=== PATIENT | female | born 1995 | race Caucasian/White ===

== ENCOUNTER → 2017-02-11 17:25 | Observation (INO) ==
[2017-02-11 14:13] LABS: Bilirubin,Urine Negative (Negative); Blood,Urine Negative (Negative); Color,Urine Yellow (Yellow); Glucose,Urine (UA) Normal (Normal); Ketones,Urine Negative (Negative); Leukocyte Esterase,Urine Negative (Negative); Nitrite,Urine Negative (Negative); PH,Urine 6.5 pH Units (5.0-8.0); Protein,Urine Negative (Neg-Trace); Specific Gravity,Urine 1.024 (1.010-1.025); Urobilinogen,Urine Normal (Normal)
[2017-02-11 14:15] LABS: Clarity,Urine Clear (Clear)
[2017-02-11 14:17] LABS: Amphetamine Screen,Urine Negative ng/mL (Cutoff=1000); Barbiturate Screen,Urine Negative ng/mL (Cutoff=200); Benzodiazepines Screen,Urine Negative ng/mL (Cutoff=200); Cannabinoid Screen,Urine Negative ng/mL (Cutoff = 50); Cocaine Screen,Urine Negative ng/mL (Cutoff= 300); Opiate Screen,Urine Negative ng/mL (Cutoff=300); Phencyclidine Screen,Urine Negative ng/mL (Cutoff=25)
[2017-02-11 14:51] LABS: Basophils % 0.4 %; Eosinophils # 0.4 K/mcL (0.0-0.6); Eosinophils % 4.1 %; Hematocrit 32.6 % (35.3-44.9); Immature Granulocytes % 0.7 % (0-4); Immature Platelets 3.9 % (1.1-6.1); Lymphocytes # 1.9 K/mcL (0.6-4.6); Mean Corpuscular HGB Conc 33.7 g/dL (31.6-35.5); Mean Corpuscular Hemoglobin 29.4 pg (28.0-33.3); Mean Corpuscular Volume 87.2 fL (83.0-100.0); Mean Platelet Volume 10.1 fL (9.4-12.4); Monocytes # 0.7 K/mcL (0.0-1.3); Monocytes % 6.3 %; Neutrophils # 7.5 K/mcL (1.6-8.9); Platelet Count 269 K/mcL (140-400); Red Blood Count 3.74 M/mcL (3.82-4.97); Red Cell Distribution Width 12.6 % (11.5-14.5); Segmented Neutrophils % 70.5 %
--- NOTE | 2017-02-11 17:20 | OB/GYN Progress Note ---
Date of Encounter: 02/11/17 Time of Encounter: 17:18 - Assessment and Plan (1) uterine contractions in second trimester, antepartum Current Visit: Yes Status: Acute Pt reports contractions have resolved since arriving to triage. CL reassuring on US. SVE with no change at ft/50/-3. Celestone given. Discharge home with pelvic rest and labor precautions. Pt to return tomorrow for repeat celestone injection. (2) 27 weeks gestation of Current Visit: Yes Status: Acute (3) Low lying placenta nos or without hemorrhage, second trimester Current Visit: Yes Status: Acute Need for pelvic rest discussed with pt. (4) cardiac echogenic focus, antepartum Current Visit: Yes Status: Acute Qualifiers: Fetus number: single or unspecified fetus Qualified Code(s): O35.8XX0 - Maternal care for other (suspected) abnormality and damage, not applicable or unspecified Subjective - Subjective Interval history: 21 year-old presenting at 27w1d with c/o pelvic pressure and cramping. She denies LOF or VB. She does admit to having sexual intercourse at about 0430 this am. She had some contractions with her last that was stopped with medication. She delivered full term. This has been complicated by ecogenic cardiac focus in the fetus. Antepartum ROS: movement normal, contractions, no loss of fluid, no vaginal bleeding Objective - Vital Signs Vital Signs: Intake and Output 02/11/17 02/11/17 02/11/17 07:59 15:59 23:59 Other: Weight 68.2 kg Patient Weight 02/11/17 23:59 Weight 68.2 kg - Exam FHR: category 1 FHR comments: FHT reassuring for gestational age. Abdomen: Present: soft, gravid. Absent: tenderness Uterus: Absent: tenderness Cervical dilation: FT Cervix effacement: 50 station: -3 bolottable - Labs Labs: Abnormal lab results RBC 3.74 M/mcL (3.82-4.97) L 02/11/17 14:40 Hgb 11.0 g/dL (11.5-15.4) L 02/11/17 14:40 Hct 32.6 % (35.3-44.9) L 02/11/17 14:40
[~2017-02-11 17:25] MED LIST: Betamethasone Acet/SodPhos 6 MG/ML MDV IM SCH; Ringers Solution, Lactated 1,000 ML IVC ONE; Ringers Solution, Lactated 1,000 ML IVC SCH; Ringers Solution, Lactated 1,000 ML ONE
== END | disposition home or self-care (01) ==
LOC: 1NENULAB
PROVIDERS: ADMIT Obstetrics & Gynecology; ATTEND Obstetrics & Gynecology

== ENCOUNTER 2017-04-14 17:26 | Observation (INO) ==
[2017-04-14 17:57] LABS: Bilirubin,Urine Negative (Negative); Blood,Urine Negative (Negative); Clarity,Urine Cloudy (Clear); Color,Urine Yellow (Yellow); Glucose,Urine (UA) Normal (Normal); Ketones,Urine Negative (Negative); Leukocyte Esterase,Urine Negative (Negative); Nitrite,Urine Negative (Negative); PH,Urine 6.5 pH Units (5.0-8.0); Protein,Urine Negative (Neg-Trace); Specific Gravity,Urine 1.022 (1.010-1.025); Urobilinogen,Urine Normal (Normal)
[2017-04-14 17:59] LABS: Bacteria,Urine Few per hpf (None-Few); Hyaline Casts,Urine None Seen per lpf (None-Few); Squamous Epithelial Cell,Urine Many per lpf (None-Few)
[2017-04-14 18:04] LABS: Amphetamine Screen,Urine Negative ng/mL (Cutoff=1000); Barbiturate Screen,Urine Negative ng/mL (Cutoff=200); Benzodiazepines Screen,Urine Negative ng/mL (Cutoff=200); Cannabinoid Screen,Urine Negative ng/mL (Cutoff = 50); Cocaine Screen,Urine Negative ng/mL (Cutoff= 300); Opiate Screen,Urine Negative ng/mL (Cutoff=300); Phencyclidine Screen,Urine Negative ng/mL (Cutoff=25)
--- NOTE | 2017-04-14 18:05 | OB/GYN Progress Note ---
Date of Encounter: 04/14/17 Time of Encounter: 18:03 - Assessment and Plan (1) 36 weeks gestation of Current Visit: Yes Status: Acute (2) Vaginal discharge during in third trimester Current Visit: Yes Status: Acute 21 yo at 36 weeks gestation IUP Vaginal discharge - no bacteria or yeast noted from vaginosis panel Membranes intact - all ROM studies negative Offered new rx - pt declines and states she will continue home medications Discharge home Follow up in office as scheduled Subjective - Subjective Principal diagnosis: Pt states "I think my water broke." Antepartum ROS: loss of fluid (Reports she has been leaking fluid since yesterday. Denies VB, ctx.) Objective - Exam FHR: category 1 FHR comments: Baseline 135, moderate variability with accelerations. Abdomen: Present: normal appearance, soft, gravid Uterus: Present: normal Cervical dilation: 3 Cervix effacement: 70 station: -4 Comments: Fern negative Pooling negative Nitrazine negative Multiple clue cells seen on microscopy
[2017-04-14 18:23] LABS: RBC,Urine 0-3 per hpf (0-3)
[2017-04-14 18:55] LABS: Candida DNA Not Detected (Not Detect); Gardnerella DNA Not Detected (Not Detect); Trichomonas DNA Not Detected (Not Detect)
== END 2017-04-14 19:25 | disposition home or self-care (01) ==
LOC: 1NENULAB
PROVIDERS: ADMIT Obstetrics & Gynecology; ATTEND Obstetrics & Gynecology

== ENCOUNTER 2017-04-29 21:35 | Inpatient (IN) ==
--- NOTE | 2017-04-29 18:56 | OB/GYN Progress Note ---
Date of Encounter: 04/29/17 Time of Encounter: 19:15 Subjective - Subjective Principal diagnosis: contractions Antepartum ROS: movement normal, contractions, no loss of fluid, no vaginal bleeding
--- NOTE | 2017-04-29 19:03 | OB/GYN History & Physical ---
Date of Encounter: 04/29/17 Time of Encounter: 19:10 Assessment and Plan (1) Active labor at term Current visit: Yes Status: Acute Plan: - admit to L&D - NST reactive - obtain CBC and drug screen - expectant management. Patient making cervical change on own. - epidural when ready - anticipate (2) 38 weeks gestation of Current visit: No Status: Acute History of Present Illness Chief complaint: contractions HPI: Ms. Jack is a 21 year old female at 38+1 weeks presented to labor and delivery contractions. Patient's is uncomplicated. Reports active movement. Patient denies vaginal bleeding, contractions, leakage of fluids. Denies N/V, changes in vision, RAPHAEL. Patient follows up with Dr. Bermudez. PNL: Blood type A+. GBS neg, RI, HBsAG neg, HIV neg. RPR neg. Past Med Surg Social Fam HX - Past Medical History Source: patient, old records reviewed Medical history: no medical history, thyroid disease (thyromegaly) Psychiatric history: no psych history - Past Surgical History Surgical History: herniorrhaphy - Social History Smoking Status: Never smoker Smokeless Tobacco Status: No Alcohol use: none Drug use: none - Family History Mother Adopted: No Living Status: Still Living Hx Family Cardiac Disorders: Yes (HTN) Hx Family Respiratory Disorders: No Hx Family Cancer: No Hx Family GI Disorders: No Hx Family Endocrine Disorder: No Hx Family Neuromuscular Disorders: No Hx Family Neurologic Disorders: No Hx Family HEENT Disorders: No Hx Family Autoimmune Disorders: No Obstetrical History - Pregnancies : 2 Para: 1 Term: 1 : 0 Ab's: 0 Livin - History/Complications History/Complications: Total pregnancies 2. Total living children 1. # 1: 09/27/2015, male, 7lbs 1oz, normal spontaneous vaginal delivery ( ). Medications and Allergies Vit37/Iron/Folic Acid [Prenata Chewable Tablet] 1 each PO DAILY [History] 3 Allergy/AdvReac Type Severity Reaction Status Date / Time No Known Allergies Allergy Verified 04/29/17 20:19 Review of System OB All systems PM: reviewed and no additional remarkable complaints except as stated Exam - Constitutional Constitutional: well developed, well nourished - HEENT HEENT: EOMI - Neck Neck exam: full ROM - Lungs Respiratory exam: CTAB - Cardiovascular Cardiovascular exam: RRR - Abdomen Abdomen: Present: bowel sounds normal - Extremities Extremities exam: full ROM - Vulva Vulva: bilateral: normal - Vagina Vagina: Present: normal moisture - Cervix Dilation: 5 Effacement: 80 Station: -3 - Uterus Uterus exam: Present: normal size - Comments Comments: I examined this patient and my medical decision-making was reviewed with the Resident Physician. I agree with the documented findings, disposition and treatment plan as described except to the extent set forth below. VENANCIO Gonzalez Results Result Diagrams: 04/29/17 21:33 All other labs normal. - VTE Reasons for not Prescribing Prophylaxis: Treatment not Indicated - Low risk for VTE
[2017-04-29 19:37] LABS: Amphetamine Screen,Urine Negative ng/mL (Cutoff=1000); Barbiturate Screen,Urine Negative ng/mL (Cutoff=200); Benzodiazepines Screen,Urine Negative ng/mL (Cutoff=200); Cannabinoid Screen,Urine Negative ng/mL (Cutoff = 50); Cocaine Screen,Urine Negative ng/mL (Cutoff= 300); Opiate Screen,Urine Negative ng/mL (Cutoff=300); Phencyclidine Screen,Urine Negative ng/mL (Cutoff=25)
[~2017-04-29 21:35] MED LIST changes: +*HR* Nalbuphine 20 MG/ML AMPUL IVP PRN; -Betamethasone Acet/SodPhos 6 MG/ML MDV IM SCH; +Famotidine 20 MG/2 ML VIAL IVP PRN; +Metoclopramide 10 MG/2 ML VIAL IVP PRN; +Naloxone 0.4 MG/ML INJ IVP PRN; -Ringers Solution, Lactated 1,000 ML IVC ONE; -Ringers Solution, Lactated 1,000 ML IVC SCH
[2017-04-29] MEDS ORDERED: Ringers Solution, Lactated 1,000 ML IVC SCH (21:45)
[2017-04-29 21:51] LABS: Basophils % 0.3 %; Eosinophils # 0.3 K/mcL (0.0-0.6); Eosinophils % 2.5 %; Hematocrit 34.2 % (35.3-44.9); Hemoglobin 11.2 g/dL (11.5-15.4); Immature Granulocytes % 0.5 % (0-4); Lymphocytes # 2.2 K/mcL (0.6-4.6); Lymphocytes % 20.7 %; Mean Corpuscular HGB Conc 32.7 g/dL (31.6-35.5); Mean Corpuscular Volume 82.4 fL (83.0-100.0); Mean Platelet Volume 10.1 fL (9.4-12.4); Monocytes # 0.7 K/mcL (0.0-1.3); Monocytes % 6.4 %; Neutrophils # 7.5 K/mcL (1.6-8.9); Platelet Count 301 K/mcL (140-400); Red Blood Count 4.15 M/mcL (3.82-4.97); Red Cell Distribution Width 13.6 % (11.5-14.5); Segmented Neutrophils % 69.6 %
[2017-04-30] MEDS ORDERED: Bupivacaine-MPF 0.25% 10 ML VIAL ONE (00:49)
[2017-04-30] MEDS ORDERED: *HR* FentaNYL (PF) 100 MCG/2 ML VIAL ONE (00:49)
[2017-04-30] MEDS ORDERED: Epidural Premix (fent/bupiv) 110 ML EP ONE ×2 (00:50→08:46)
[2017-04-30] MEDS ORDERED: Bupivacaine-MPF 0.25% 10 ML VIAL EP ONE (01:29)
[2017-04-30] MEDS ORDERED: *HR* FentaNYL (PF) 100 MCG/2 ML VIAL EP ONE (01:29)
[2017-04-30] MEDS ORDERED: Epidural Premix (fent/bupiv) 110 ML EP SCH (01:30)
--- NOTE | 2017-04-30 01:33 | Anesthesia Evaluation PreOp ---
Date of Encounter: 04/30/17 Time of Encounter: 00:42 - Past History Planned Operation: labor epidural Cardiac History: Denies any Significant Hx Pulmonary History: Denies Any Significant HX GREENHOUSE TECHNICIAN History: Denies Any Significant HX Other Medical History: Denies Any Significant HX Anesthesia History: No Prior Anesthetic Complications, Past Anesthesia (hernia repair at age 6 years. No FHAP.) : Yes Alcohol Use: none Drug use: none Medications and Allergies Vit37/Iron/Folic Acid [Prenata Chewable Tablet] 1 each PO DAILY [History] 3 Allergy/AdvReac Type Severity Reaction Status Date / Time No Known Allergies Allergy Verified 04/29/17 20:19 - Meds/Allergy Pre-op Review Medications Reviewed: Yes Allergies Reviewed: Yes Beta Blockers on Current Med List: No Anesthesia Results - Labs 04/29/17 21:33 Anesthesia Exam 121/70, 93, 16. FHTs 130s. Height: 5'3" Weight: 74 kg NPO (# of Hours): 12 Pain Scale: 10 Pain Scale Used: Numeric (1 - 10) - HEENT Pupil (Motor): Pupils equal Mallampati: II Teeth: Normal Oral Opening: Greater than 3 - GREENHOUSE TECHNICIAN LOC: Oriented GREENHOUSE TECHNICIAN Motor: Normal RUE, Normal LUE, Normal RLE, Normal LLE, Normal Face GREENHOUSE TECHNICIAN Sensory: Normal: RUE, LUE, RLE, LLE, Face - Cardiac Rhythm: Regular - Pulmonary Breath Sounds: bilateral Clear Respiratory Effort: Symmetrical Anesthesia Assess/Plan ASA Score: 2 Modified Wingo Scale for Level of Consciousness: Cooperative, oriented, and tranquil Anesthetic Plan: Regional Monitoring Plan: Standard Monitors
--- NOTE | 2017-04-30 01:37 | Anesthesia Procedures ---
Date of Encounter: 04/30/17 Time of Encounter: 00:51 Procedures: Anesthesia - Epidural/Spinal Patient ID/Chart reviewed: Yes Patient examined: Yes OB Eval: Gestational age: 38 OB Eval: : 2 OB Eval: Hx Para: 1 OB Eval: Dilated at (cm): 6 OB Eval: Contractions: Non-stressed pattern Consent Obtained: Yes Supplemental Oxygen: None/Room Air Site Prep: Aseptic Technique, Sterile prep and drape, Povidone-Iodine 1% Patient position: upright Local Anesthetic: Lidocaine 1% Amount of Local Anesthetic used: 3 Touhy Needle Gauge: 18 Touhy Needle Depth (cm): 6 Catheter Depth at Skin (cm): 15 Test Dose (1.5% Lido + Epi): Volume given (mls): 3 Test Dose Result: Negative Loading Dose: 0.25% Marcaine (mls): 8 Loading Dose: Fentanyl (mcg): 100 Loading Dose Administered: Thru Catheter Infusion Med: 0.125% Bupivacaine w/ 2 mcg/ml Fentanyl Infusion Rate (mls/hr): [address]: Tegaderm, Tape Interspace Used: L3-L4 Loss of Resistance (YON): Yes Blood: No CSF: No Paresthesia: No Vitals + FHT's: 3 Vital Signs Time 0051 0113 0115 0120 0125 BP 121/70 132/62 115/68 112/58 115/67 Pulse 91 92 93 92 94 FHTs 130 130 130 130 130
[2017-04-30] MEDS ORDERED: Famotidine 20 MG/2 ML VIAL IVP ONE (07:24)
--- NOTE | 2017-04-30 08:22 | OB Labor Progress Note ---
Date of Encounter: 04/30/17 Time of Encounter: 08:20 Labor Progress Note - Subjective Subjective: Pt reports she is comfortable with epidural. - Cervix Cervix: 8/90/-2 and ballottable - Heart Tones Heart Tones: Baseline 135 Moderate variability Accelerations present 15x15 Decelerations absent - [place]: Contractions 5+ minutes apart - Interventions Interventions: Start pitocin per protocol - Plan Plan: 21 yo IUP at 38+2 weeks GA GBS - Active labor Inadequate contraction pattern Plan: Continue expectant management Continue frequent position changes between peanut ball and oscar sitting Start pitocin per protocol and increase to adequate labor pattern Anticipate vaginal delivery Dr. Bermudez aware of POC and agrees
[2017-04-30] MEDS ORDERED: Oxytocin 20 units/ LR 1000 mL 20 UNIT/1,000 ML BAG IVC SCH ×2 (08:30→20:29)
[2017-04-30] MEDS ORDERED: Ondansetron 4 MG/2 ML VIAL IVP PRN (09:43)
--- NOTE | 2017-04-30 13:06 | OB Labor Progress Note ---
Date of Encounter: 04/30/17 Time of Encounter: 12:30 Labor Progress Note - Subjective Subjective: Pt reports good pain relief from epidural. States she is also feeling increase in pressure with contractions. - Cervix Cervix: 8/90/-2 - Heart Tones Heart Tones: Baseline 120 Moderate variability Accelerations present 15x15 Variable and early decelerations present Fetus Category II tracing - [place]: Contractions intermittent and irregular - Interventions Interventions: AROM - clear fluid IUPC placed - Plan Plan: Assessment: 21yo IUP at 39+3 weeks Irregular contraction pattern Plan: Continue expectant management AROM IUPC for ctx monitoring Anticipate vaginal delivery Dr. Bermudez aware of POC and agrees
--- NOTE | 2017-04-30 15:20 | OB/GYN Procedure Note ---
Delivery - Delivery Date: 04/30/17 Provider: Allegra Zhu Intrapartum events: none Delivery induction: none Delivery augmentation: rupture of membranes, pitocin Delivery monitor: external FHT Anesthesia: epidural Estimated Blood Loss: 100 - Infant (s) A Infant Delivery Date: 04/30/17 Infant Delivery Time: 15:05 Presentation: vertex Position: KELLY Route of delivery: Gender: Female Viability: Viable Weight Gram: 3365 kg at 1 minute: 9 at 5 mins: 9 Shoulder Dystocia: not encountered Specimens collected: cord blood Placenta: spontaneous Cord: 3 umbilical vessels - Repair Episiotomy: none Laceration Description: None - Complications Delivery complications: none Delivery comments: Pam is a G2 now P2002 who was admitted in spontaneous labor. She progressed with AROM and pitocin augmentation to the second stage of labor. She delivered a viable female KELLY over intact perineum. Infant was placed on maternal abdomen and bulb suctioned. A nuchal cord was not identified. 9/9. Wt 3365g. The placenta delivered spontaneously wtih a 3-vessel cord. Inspection revealed an intact perineum with right periurethral laceration that was hemostatic. EBL 100. Cord blood and cord segment collected. There were no complications during the delivery. Mom and baby cuddling and bonding skin-to- skin following delivery. Dr. Bermudez attended delivery for supervison. - Disposition Mom disposition: stable in LDR [place] disposition: stable in LDR - Comments Comments: Patient progressed to complete and on the perineum. She delivered a live female 7 lbs. 4 oz. over an intact perineum. Placenta delivered spontaneously intact. Estimated blood loss was 100 mL.
[2017-04-30] MEDS ORDERED: Benzocaine/Menthol 56 GM AEROSOL SPRAY TP PRN (20:29)
[2017-04-30] MEDS ORDERED: Ibuprofen 600 MG TABLET PO PRN (20:29)
[2017-04-30] MEDS ORDERED: Acetaminophen 325 MG TABLET PO PRN (20:29)
[2017-04-30] MEDS ORDERED: Lanolin 7 G OINT...G. TP PRN (20:29)
[2017-05-01] MEDS ORDERED: Maalox Oral Soln 30 mL PO PRN (06:54)
[2017-05-01 08:17] VITALS: BP 107/61
--- NOTE | 2017-05-01 08:55 | Discharge Summary ---
Date of Encounter: 05/01/17 Time of Encounter: 08:49 - Discharge Diagnosis (1) Vaginal delivery Priority: Primary Status: Acute Comments: Pt meeting milestones. No complaints. Pt desires discharge home. (2) Mother currently breast-feeding Priority: Secondary Status: Acute - Discharge Medications Prescriptions: Ibuprofen [Motrin] 600 mg PO Q6HR PRN #30 tablet PRN Reason: Cramping Docusate [Colace] 100 mg PO BID #30 capsule Home Medications: Vit37/Iron/Folic Acid [Prenata Chewable Tablet] 1 each PO DAILY [History] Benzocaine/Menthol [place] [Dermoplast [place]] 1 appl TP QID PRN aerosol 05/01/17 [Rx] Docusate [Colace] 100 mg PO BID #30 capsule 05/01/17 [Rx] Ibuprofen [Motrin] 600 mg PO Q6HR PRN #30 tablet 05/01/17 [Rx] Lanolin [Lansinoh] 1 appl TP QID PRN oint...g. 05/01/17 [Rx] Allergies/Adverse Reactions: 3 Allergy/AdvReac Type Severity Reaction Status Date / Time No Known Allergies Allergy Verified 04/29/17 20:19 Data Procedures and tests throughout hospitalization: Laboratory Tests 04/29/17 04/29/17 18:30 21:33 WBC 10.7 RBC 4.15 Hgb 11.2 L Hct 34.2 L MCV 82.4 L MCH 27.0 L MCHC 32.7 RDW 13.6 Plt Count 301 MPV 10.1 Immature Gran % 0.5 Seg Neutrophils % 69.6 Lymphocytes % 20.7 Monocytes % 6.4 Eosinophils % 2.5 Basophils % 0.3 Neutrophils # 7.5 Lymphocytes # 2.2 Monocytes # 0.7 Eosinophils # 0.3 Basophils # 0.0 Urine Opiates Screen Negative Ur Barbiturates Screen Negative Ur Phencyclidine Scrn Negative Ur Amphetamines Screen Negative U Benzodiazepines Scrn Negative Urine Cocaine Screen Negative U Marijuana (THC) Screen Negative Date of admission: 04/29/17 21:35 Consults: 04/30/17 20:29 Consult to Dairy Worker [CONS] Routine Comment: Vaginal delivery, consult needed Discharging clinician: Jessica Leigh Anticipated date of discharge: 05/01/17 - Patient Status Disposition: Home, Self-Care Condition: Good Functional capacity at discharge: independent ambulation Overall status at discharge: patient is progressing back to baseline - Discharge Instructions Follow Up With: Heena Rincon CNM [Advanced Practice Nurse] - - Diet and Activity Activity: increase activity as tolerated Diet: regular diet Hospital Course Reason for admission: active labor Delivery: Episiotomy: none Laceration: none Other procedures: none complications: none Discharge diagnosis: IUP at term delivered [place] baby: female Hospital course: - Delivery Date: 04/30/17 Provider: Allegra Zhu Intrapartum events: none Delivery induction: none Delivery augmentation: rupture of membranes, pitocin Delivery monitor: external FHT Anesthesia: epidural Estimated Blood Loss: 100 - (s) Infant A Delivery Date: 04/30/17 Infant Delivery Time: 15:05 Presentation: vertex Position: KELLY Route of delivery: Gender: Female Viability: Viable Weight Gram: 3365 kg at 1 minute: 9 at 5 mins: 9 Shoulder Dystocia: not encountered Specimens collected: cord blood Placenta: spontaneous Cord: 3 umbilical vessels - Repair Episiotomy: none Laceration Description: None - Complications Delivery complications: none - Disposition Mom disposition: home PPD#1 [place] disposition: home with mother, Time Attestation: Total time spent providing and/or coordinating discharge services: Time Spent: Less than 30 minutes Exam - Constitutional Vitals: Temp Pulse Resp BP Pulse Ox 97.7 F 68 16 107/61 97 05/01/17 07:30 05/01/17 07:30 05/01/17 07:30 05/01/17 07:30 05/01/17 03:25 General appearance IM: A&O X 3 - Respiratory Respiratory exam: Present: CTAB - Cardiovascular Cardiovascular exam IM: Present: RRR - GI/Abdominal GI/Abdominal exam IM: soft - Rectal Rectal exam: deferred - Uterine Tone: Firm Uterus Position: 3 Fingers Below Umbilicus - Extremities Exam Extremities exam IM: Present: normal inspection, pedal edema (mild edema bilaterally) - Neurological Exam Neurological exam: normal gait, oriented X3 - Psychiatric Additional comments: reports good mood
[2017-05-01] MEDS ORDERED: Prenatal Vit/FA 1 EACH TABLET PO SCH (09:00)
[2017-05-01] MEDS ORDERED: Mag Hydrox/Al Hydrox/Simeth 30 ML UDC PO PRN (11:15)
== END 2017-05-01 16:29 | disposition home or self-care (01) | DRG 775 ==
LOC: 1NENULAB → 1NENUOBS 04-30 17:13
PROVIDERS: ADMIT Advanced Practice Midwife; ATTEND Advanced Practice Midwife